=== PATIENT | male | born 1940 | race Caucasian/White ===

== ENCOUNTER 2016-06-05 09:24 | Emergency (ER) | payer OTHER ==
[~2016-06-05] VITALS: Ht 177.8 cm; Wt 75.0 kg
[~2016-06-05 09:24] MED LIST: ABILIFY2 MG PO; ADULT LOW DOSE81 M1 PO; ADVAIR 250/501 DISK IH; ASPIR 8181 M1 PO; ASPIR-LOW81 MG PO; ASPIRIN81 M1 PO; ASPIRIN81 M2 PO; ATENOLOL50 MG PO; AZITHROMYCIN500 M1 PO; CALCIUM 250+D1 EACH PO; CALCIUM 500 +1 EAC5 PO; CALCIUM 600 +1 EA15 PO; CAPT25T PO; CEFUROXIME250 MG PO; CEFUROXIME500 MG PO; CELEBREX200 MG PO; COMBIVENT RESPIM4 GM IH; CRESTOR20 MG PO; CYMBALTA60 MG PO; DALIRESP500 MCG PO; DOCUSATE SODIU100 MG PO; ELIQUIS5 MG PO; FINASTERIDE5 MG PO; FISH OIL 1,0001 EAC6 PO; FISH OIL 1,0001 EAC7 PO; FISH OIL 1,001000 M1 PO; FISH OIL 1,2001 EAC4 PO; FLOMAX0.4 MG PO; HYDROCODON-ACE1 EAC7 PO; KLOR-CON 1010 ME1 PO; KLOR-CON M2020 MEQ PO; KLOR-CON-EF 2525 MEQ PO; LAMICTAL XR100 MG PO; LASIX40 MG PO; LEVAQUIN750 MG PO; LIPITOR40 MG PO; LISINOPRIL10 MG PO; LO-DOSE ASPIRIN81 M2 PO; LOVENOX40 MG/0.4 SC; MEDROL DOSEPAK4 MG PO; MYSOLINE250 MG PO; NITROSTAT0.4 MG SL; NORVASC5 MG PO; PLAVIX75 MG PO; PRADAXA150 MG PO; PREDNISONE10 MG PO; PRILOSEC40 MG PO; PRIMIDONE250 MG PO; PRIMIDONE50 MG PO; PROAIR HFA8.5 GM IH; PROAIR RESPICL90 MCG IH; PROTONIX40 MG PO; SPIRIVA RESPIMAT4 GM IH; SPIRIVA1 INHALATI IH; TAMSULOSIN HCL0.4 MG PO; TENORMIN50 MG PO; VIBRAMYCIN100 MG PO; ZESTRIL10 MG PO
[2016-06-05 10:35] LABS: BASOPHIL COUNT 0.1 K/uL (0-0.1); EOSINOPHIL (%) 2.2 % (0-5); EOSINOPHIL COUNT 0.2 K/uL (0-0.3); HEMATOCRIT 38.5 % (38.0-50.0); IMMATURE GRANULOCYTE (%) 0.4 % (0.0-0.7); INSTRUMENT ABS NEUTROPHIL CT 5.8 K/uL; MCH 31.2 PG (29.0-34.0); MCHC 32.5 G/DL (30.0-36.0); MEAN PLAT.VOLUME 9.5 uM^3 (9.0-12.4); MONOCYTE (%) 9.1 % (3-12); MONOCYTE COUNT 0.7 K/uL (0-0.8); NEUTROPHIL COUNT 5.8 K/uL (1.8-6.4); PLATELET COUNT 227 K/uL (156-360); RBC DIS.WIDTH-CV 13.2 % (11.8-14.6); RBC DIS.WIDTH-SD 46.7 % (39-53); RED BLOOD COUNT 4.01 M/uL (4.00-5.50); WHITE BLOOD COUNT 7.8 K/uL (4.1-10.2)
[2016-06-05 10:46] LABS: CHLORIDE 109 mEq/L (99-109); SODIUM 143 mEq/L (136-147)
[2016-06-05 10:47] LABS: GLUCOSE 98 mg/dL (70-99)
[2016-06-05 10:49] LABS: ANION GAP 10 MEQ/L (2-14)
[2016-06-05 10:51] LABS: GFR ESTIMATE (CALCULATED) > 59 mL/min/
[2016-06-05 10:52] LABS: UREA NITROGEN (BUN) 20 mg/dL (9-23)
[2016-06-05 10:59] LABS: TROP-I INTERPRETATION NEGATIVE; TROPONIN-I < 0.01 ng/mL (0.0-0.30)
[2016-06-05] MEDS ORDERED: XARELTO15 MG PO (13:36)
[2016-06-05] MEDS ORDERED: XARELTO20 MG PO (13:36)
[2016-06-05 15:12] VITALS: BP 164/101
== END 2016-06-05 15:13 | disposition home or self-care (01) ==
LOC: EME 09:24
PROVIDERS: Emergency Medicine
DX: I82.412 Acute embolism and thrombosis of left femoral vein (principal); I48.91 Unspecified atrial fibrillation; I10 Essential (primary) hypertension; G89.29 Other chronic pain; J44.9 Chronic obstructive pulmonary disease, unspecified; I50.9 Heart failure, unspecified; E78.5 Hyperlipidemia, unspecified; I25.10 Atherosclerotic heart disease of native coronary artery without angina pectoris; G25.0 Essential tremor; Z85.828 Personal history of other malignant neoplasm of skin; Z79.02 Long term (current) use of antithrombotics/antiplatelets; Z79.82 Long term (current) use of aspirin; Z87.891 Personal history of nicotine dependence
CPT/HCPCS: 71010; 80048; 83880; 84484; 85025; 93005; 93970; 99281; 99284

== ENCOUNTER 2016-06-29 13:45 | Emergency (ER) | payer OTHER ==
[~2016-06-29] VITALS: Ht 177.8 cm; Wt 74.0 kg
[~2016-06-29 13:45] MED LIST changes: +XARELTO15 MG PO; +XARELTO20 MG PO
[2016-06-29] MEDS ORDERED: TRAMADOL HCL50 MG PO (15:27)
[2016-06-29] MEDS ORDERED: PREDNISONE20 MG PO (16:18)
[2016-06-29 16:47] VITALS: BP 165/80
== END 2016-06-29 16:47 | disposition home or self-care (01) ==
LOC: EME 13:45
DX: M17.12 Unilateral primary osteoarthritis, left knee (principal); Z86.718 Personal history of other venous thrombosis and embolism; I11.0 Hypertensive heart disease with heart failure; I50.9 Heart failure, unspecified; J44.9 Chronic obstructive pulmonary disease, unspecified; E78.5 Hyperlipidemia, unspecified; Z79.82 Long term (current) use of aspirin
CPT/HCPCS: 73564; 93971; 99281; 99284; J7512

== ENCOUNTER 2017-05-06 03:36 | Inpatient (IN) | payer OTHER ==
[~2017-05-06] VITALS: Ht 177.8 cm; Wt 74.5 kg
[~2017-05-06 03:36] MED LIST changes: +PREDNISONE20 MG PO; +TRAMADOL HCL50 MG PO
[2017-05-06 04:38] LABS: HEMATOCRIT 36.3 % (38.0-50.0); HEMOGLOBIN 12.4 G/DL (12.5-16.6); MCH 32.6 PG (29.0-34.0); MCHC 34.2 G/DL (30.0-36.0); MCV 95.5 FL (86-99); PLATELET COUNT 254 K/uL (156-360); RBC DIS.WIDTH-CV 14.7 % (11.8-14.6); RBC DIS.WIDTH-SD 51.5 % (39-53); WHITE BLOOD COUNT 7.9 K/uL (4.1-10.2)
[2017-05-06 04:46] LABS: CHLORIDE 108 mEq/L (99-109); POTASSIUM 4.4 mEq/L (3.7-5.4); SODIUM 140 mEq/L (136-147)
[2017-05-06 04:48] LABS: GLUCOSE 92 mg/dL (70-99)
[2017-05-06 04:52] LABS: CREATININE 1.3 mg/dL (0.6-1.3); GFR ESTIMATE (CALCULATED) 57 mL/min/ (58.99-99999)
[2017-05-06 04:53] LABS: UREA NITROGEN (BUN) 27 mg/dL (9-23)
[2017-05-06 04:58] LABS: TROP-I INTERPRETATION NEGATIVE; TROPONIN-I 0.01 ng/mL (0.0-0.30)
[2017-05-06] MEDS ORDERED: XARELTO20 MG PO (05:59)
[2017-05-06] MEDS ORDERED: DYAZIDE, MA1 CAPSULE PO (05:59)
[2017-05-06 08:02] VITALS: BP 135/94
[2017-05-06 11:28] LABS: APPEARANCE CLEAR ((CLEAR)); BILIRUBIN NEGATIVE; BLOOD MODERATE; COLOR STRAW ((YELLOW)); GLUCOSE (STRIP) NEGATIVE; KETONES NEGATIVE; LEUKOCYTES NEGATIVE; NITRITE NEGATIVE; PROTEIN (STRIP) NEGATIVE; SPECIFIC GRAVITY 1.005 (1.000-1.030); UROBILINOGEN 0.2 MG/DL (0.2-1.0)
[2017-05-06 11:51] LABS: BACTERIA RARE /HPF; EPITHELIAL CELLS NONE SEEN /HPF; MUCUS NONE SEEN /LPF; RED BLOOD CELLS 40-50 /HPF (0-5); UCUL ADDED? NO; WHITE BLOOD CELLS 0-5 /HPF (0-5)
[2017-05-06 12:16] VITALS: BP 135/63
[2017-05-06] MEDS ORDERED: BUPROPION HCL100 M1 PO (12:23)
[2017-05-06] MEDS ORDERED: VITAMIN E400 UNIT PO (12:26)
[2017-05-06] MEDS ORDERED: GINKGO BILOBA60 MG PO (12:26)
[2017-05-06] MEDS ORDERED: FISH OIL 1,0001 EAC7 PO (12:27)
[2017-05-06] MEDS ORDERED: ONCE DAILY1 EACH PO (12:27)
[2017-05-06 17:11] VITALS: BP 146/67
[2017-05-06 19:40] VITALS: BP 110/58
[2017-05-06 23:29] VITALS: BP 132/58
[2017-05-07 05:24] VITALS: BP 158/72
[2017-05-07 05:52] LABS: BASOPHIL (%) 0.6 % (0-1); BASOPHIL COUNT 0.1 K/uL (0-0.1); EOSINOPHIL (%) 3.5 % (0-5); EOSINOPHIL COUNT 0.3 K/uL (0-0.3); HEMATOCRIT 36.2 % (38.0-50.0); HEMOGLOBIN 11.8 G/DL (12.5-16.6); IMMATURE GRANULOCYTE (%) 0.5 % (0.0-0.7); LYMPHOCYTE (%) 13.7 % (15-42); LYMPHOCYTE COUNT 1.3 K/uL (1.0-2.8); MCH 30.6 PG (29.0-34.0); MCHC 32.6 G/DL (30.0-36.0); MONOCYTE (%) 11.4 % (3-12); MONOCYTE COUNT 1.1 K/uL (0-0.8); NEUTROPHIL (%) 70.3 % (45-76); NEUTROPHIL COUNT 6.7 K/uL (1.8-6.4); PLATELET COUNT 236 K/uL (156-360); RBC DIS.WIDTH-CV 14.6 % (11.8-14.6); RED BLOOD COUNT 3.85 M/uL (4.00-5.50); WHITE BLOOD COUNT 9.5 K/uL (4.1-10.2)
[2017-05-07 06:16] LABS: CHLORIDE 105 MEQ/L (99-109); CREATININE 1.3 MG/DL (0.6-1.3); GFR ESTIMATE (CALCULATED) 57 mL/min/ (58.99-99999); GLUCOSE 91 mg/dL (70-99); MAGNESIUM 1.7 mg/dl (1.3-2.7); POTASSIUM 3.7 MEQ/L (3.7-5.4); SODIUM 138 MEQ/L (136-147); UREA NITROGEN (BUN) 22 mg/dL (9-23)
[2017-05-07 07:29] VITALS: BP 158/76
[2017-05-07 13:03] VITALS: BP 136/66
[2017-05-07] MEDS ORDERED: FUROSEMIDE20 MG PO (15:25)
== END 2017-05-07 16:18 | disposition home health service (06) | DRG 293 ==
LOC: EME → EDBD 03:36 → EDOF 05:20 → ENRESERV 05:23 → 5WEST 07:32
PROVIDERS: Emergency Medicine; Hospitalist; Physician Assistant Medical
DX: I11.0 Hypertensive heart disease with heart failure (principal); I50.33 Acute on chronic diastolic (congestive) heart failure; I48.2 Chronic atrial fibrillation; R00.1 Bradycardia, unspecified; J44.9 Chronic obstructive pulmonary disease, unspecified; I25.5 Ischemic cardiomyopathy; I25.10 Atherosclerotic heart disease of native coronary artery without angina pectoris; R09.02 Hypoxemia; E11.51 Type 2 diabetes mellitus with diabetic peripheral angiopathy without gangrene; E78.5 Hyperlipidemia, unspecified; G25.0 Essential tremor; N40.0 Benign prostatic hyperplasia without lower urinary tract symptoms; G89.29 Other chronic pain; M25.559 Pain in unspecified hip; I69.393 Ataxia following cerebral infarction; Z98.61 Coronary angioplasty status; Z57.5 Occupational exposure to toxic agents in other industries; Z95.820 Peripheral vascular angioplasty status with implants and grafts; Z87.891 Personal history of nicotine dependence; Z85.828 Personal history of other malignant neoplasm of skin; Z87.01 Personal history of pneumonia (recurrent); Z87.81 Personal history of (healed) traumatic fracture; Z79.01 Long term (current) use of anticoagulants; Z79.82 Long term (current) use of aspirin; Z79.02 Long term (current) use of antithrombotics/antiplatelets; Z82.49 Family history of ischemic heart disease and other diseases of the circulatory system; Z83.3 Family history of diabetes mellitus
CPT/HCPCS: 71046; 80048; 81003; 82948; 83735; 83880; 84484; 85025; 85027; 93005; 93971; 94640; 94640 76; 94799; 99202; 99281; 99284; J1940